=== PATIENT | male | born 1975 | race Caucasian/White ===

== ENCOUNTER 2025-10-19 17:30 | Observation (INO) | payer OTHER, SELFPAY ==
[2025-10-19] VITALS (7 sets, daily range): BP systolic 103–112; BP diastolic 72–75; PULSE 88–102; RESP 16–22; TEMP 36.4–36.7; O2SAT 94–100; BMI 23.3; BMI 21.8; BMI 22.7
--- NOTE | 2025-10-19 17:39 | CT_ITS ---
PROCEDURE: STROKE BRAIN/HEAD WITHOUT CONT 10/19/2025 REASON FOR EXAM: NEURO DEFICIT, ACUTE, STROKE SUSPECTED TECHNIQUE: Procedure Code: CTBR.ST Modality: CT Procedure: STROKE BRAIN/HEAD WITHOUT CONT Coronal and Sagittal reconstruction series were provided. One or more dose reduction techniques were used (e.g., Automated exposure control, adjustment of the mA and/or kV according to patient size, use of iterative reconstruction technique. RADIATION DOSE SUMMARY: CTDlvol: 44 mGy DLP: 463 mGycm FINDINGS: The ventricles are normal in size and midline in position. No evidence of acute hemorrhage or infarction. No extra-axial blood or fluid collections. The paranasal sinuses and mastoid air cells are clear. The calvarial vault and skull base are intact. CT/STROKE Brain/Head without Cont IMPRESSION: No acute intracranial abnormality. Critical results were communicated to Dr. Armenta at 4:50 p.m.. Reading [facility]
--- NOTE | 2025-10-19 17:39 | EKG12_ITS ---
Test Reason : stroke Blood Pressure : */* mmHG Vent. Rate : 88 BPM Atrial Rate : 88 BPM P-R Int : 238 ms QRS Dur : 96 ms QT Int : 352 ms P-R-T Axes : 35 -11 9 degrees QTcB Int : 425 ms Sinus rhythm with 1st degree A-V block Inferior infarct , age undetermined Abnormal ECG Confirmed by LETTY AGUIRRE, YAYA ([id number]), slot editor NIRAJ BARNETT ([id number]) on 10/24/2025 6:22:18 AM Referred By: Confirmed By: YAYA SAENZ MD
--- NOTE | 2025-10-19 17:40 | CT_ITS ---
PROCEDURE: STROKE CTA HEAD AND NECK W/CON 10/19/2025 REASON FOR EXAM: NEURO DEFICIT, ACUTE, STROKE SUSPECTED TECHNIQUE: Procedure Code: CTCTA.ST.HN Modality: CT Procedure: STROKE CTA HEAD AND NECK W/CON Multiplanar Sagittal and Coronal images were obtained. CONTRAST: Isovue 370 VOLUME: 104 mL One or more dose reduction techniques were used (e.g., Automated exposure control, adjustment of the mA and/or kV according to patient size, use of iterative reconstruction technique). RADIATION DOSE SUMMARY: CTDlvol: 24+ 18 mGy DLP: 801 mGycm FINDINGS: The common carotid arteries are patent. The internal carotid arteries are patent. The cervical vertebral arteries are patent. The right cervical vertebral artery is dominant when compared to the left, an anatomic variant. The anterior cerebral, anterior communicating, middle cerebral, and posterior cerebral arteries are patent. The superior cerebellar, anterior inferior cerebellar, and posterior inferior cerebellar arteries are patent. Bilateral pulmonary nodules with the largest located in left lung apex and measuring 14 mm. Suspicion for bilateral perihilar lymphadenopathy. CT/STROKE CTA Head AND Neck W/Con IMPRESSION: No acute arterial abnormality of the head or neck. Suspicious pulmonary nodules and perihilar lymphadenopathy. Further characteri zation with nonemergent chest CT is recommended. Reading Location: [facility]
--- NOTE | 2025-10-19 17:43 | EX.ED.VIS.EY ---
HPI History of Present Illness Chief Complaint: Stroke Alert Informant: patient Onset/Context/Timing Location: Left Eye Onset: Today Context: Sudden Onset Timing: Continuous Worsened by: Nothing Relieved by: Nothing Associated Symptoms Visual Changes: left: Visual field cut (Top right visual field) History of injury: No Narrative Narrative: Patient presents with visual field deficit that began today. Patient states he was watching TV around noon when this started. Patient states the top right portion of his visual field of his left eye became black. Patient states it has been constant. Patient states he would and saw his mining manager who noted that he had a vascular occlusion in his retina. Patient was then referred to the emergency department for stroke evaluation. Patient denies any weakness. Patient denies any nausea or vomiting. Patient denies any paresthesias. Patient denies any headaches. Patient denies any chest pain. [facility] Medical History (Updated 10/19/25 @ 20:[address] Nathanael Armenta, DO) Normocytic anemia Hypothyroidism PAF (paroxysmal atrial fibrillation) Valvular heart disease Squamous cell carcinoma of skin of left cheek Home Medications ?Medication ?Instructions ?Recorded ?Last Taken ?Type apixaban 5 mg tablet (Eliquis) 5 mg PO BID 10/19/25 Unknown History levothyroxine 200 mcg tablet 200 mcg PO DAILY 10/19/25 Unknown History Allergy/AdvReac Type Severity Reaction Status Date / Time No Known Allergies Allergy Verified 10/19/25 17:34 Surgical History (Updated 10/19/25 @ 19:[address] Belkys Castillo MD) S/P mitral valve repair History of facial surgery Social History Smoking Status: Former smoker ROS ROS ED Eyes Eyes: Reports change in vision Cardiovascular Cardiovascular: Denies chest pain Respiratory/Chest Respiratory/Chest: Denies cough or dyspnea Gastrointestinal Gastrointestinal: Denies nausea or vomiting Musculoskeletal Musculoskeletal: Denies back pain or neck pain Neurologic Neurologic: Denies headache(s) Allergic/Immunologic Allergic/Immunologic ED: Denies urticaria EXAM Physical Exam Const Vital Signs: 10/19/25 17:30 Temperature 97.6 F L Temperature Source Temporal Pulse Rate 102 H Respiratory Rate 16 Blood Pressure 106/75 Blood Pressure Mean 85 Pulse Ox 100 Oxygen Delivery Method Room Air Positive well nourished and well developed General Appearance ED: well developed and NAD HEENT atraumatic Eyes Eyes Narrative: Pupils are dilated. There is decreased vision in the superior medial portion of the left visual field. Extraocular muscles are intact. Neck supple and no JVD Resp normal respiratory effort and clear to auscultation bilaterally Cardio regular rate and regular rhythm GI non-tender and non-distended Palpation: soft Neuro oriented x3, CN's II-XII intact bilaterally, moves all extremities and no sensory deficits noted Sensorium / Orientation: alert Motor Exam: strength 5/5 throughout MDM MDM MDM Narrative Medical decision making narrative: Stroke alert was called. Stroke order set was used. CT scan of the brain will be obtained to assess for intracranial bleeding and stroke. CTA of the head and neck will be obtained to assess for large vessel occlusion and vascular stenosis. EKG will be obtained to assess for cardiac dysrhythmia and cardiac ischemia. Chest x-ray will be obtained to assess for pneumonia and bronchitis. CBC will be obtained to assess for leukocytosis and anemia. Basic metabolic profile will be obtained to assess for electrolyte abnormality renal function. High-sensitivity troponin will be obtained to assess for cardiac ischemia. 2-hour repeat high-sensitivity troponin will be obtained to assess for ongoing cardiac ischemia. PT with INR and PTT will be obtained to assess for coagulopathy. Lab Data Lab results narrative: CBC was reviewed. There is a mild leukocytosis of 15.0. There is a mild anemia with a hemoglobin of 9.1 and hematocrit of 28.2. Basic metabolic profile was reviewed. Glucose was slightly elevated at 121. The remainder is within normal limits. PT with INR and PTT were reviewed. Pro time was slightly elevated at 16.0 and INR is 1.3. PTT was slightly elevated at 40.3. Initial high-sensitivity troponin was reviewed and was slightly elevated at 23. Radiography Chest X-Ray - ED: 1 View, Read by ED Physician, Read by Radiologist and No Acute Disease CTA PE Study: No Evidence of PE and No Evidence of Dissection Diagnostic Testing: Portable 1 view chest x-ray was obtained. On my independent interpretation, lung luis are clear. There is normal cardiac silhouette. Bony thorax is normal. There is no acute process noted. Radiologist also interpreted the x-ray and agrees. CT scan of the brain was obtained. There is no acute intracranial abnormality. This was interpreted by the radiologist I also independently reviewed the images and did not see evidence of intracranial bleeding or stroke. CTA of the head and neck was obtained. There is no evidence of large vessel occlusion or vascular stenosis. This was interpreted by the radiologist. I also independently reviewed the images and did not see any large vessel occlusion. CTA of the chest was obtained. There is no evidence of pulmonary embolism or aortic dissection. There are multiple pulmonary nodules and lymphadenopathy suspicious for malignancy. This was interpreted by the radiologist. I also independently reviewed the images and did not see any evidence of pulmonary embolism or aortic dissection. EKG Initial EKG: Attestation: I personally reviewed and interpreted this EKG as follows: Interpretation: Sinus Rhythm (88), AV Block (First-degree) and Non-Specific ST Changes Comments: EKG was obtained. On my independent interpretation, it showed a normal sinus rhythm with first-degree AV block with a rate of 88. SD interval was prolonged at 238 ms. QRS interval was normal at 96 ms. QTc interval was normal at 425 ms. There is borderline left axis deviation at -11. There are nonspecific ST-T wave changes. Prior EKG tracings: not available for review Prior: No Prior Management Discussion w/another healthcare provider: Hospitalist, Button Sewer ([facility] stroke neurologist, Dr. Elliott) and Radiologist Treatment and Re-Evaluation Narrative: Patient was evaluated by stroke neurology at [facility]. They recommended transferring to [facility] for inpatient stroke and ophthalmology workup. Patient would prefer to stay here. Patient will be admitted here for further stroke workup. He will follow-up with ophthalmology as an outpatient. Discharge Plan Dx/Rx/DC Orders Clinical Impression: Branch retinal artery occlusion of left eye, Normocytic anemia, Squamous cell carcinoma of skin of left cheek Disposition Disposition: Acute Care Hospital [facility]
--- NOTE | 2025-10-19 17:52 | CT_ITS ---
PROCEDURE: CTA CHEST W/WO CONTRAST 10/19/2025 REASON FOR EXAM: SUSPECTED PE TECHNIQUE: Procedure Code: CTCTACHWW Modality: CT Procedure: CTA CHEST W/WO CONTRAST Multiplanar Sagittal and Coronal images were obtained. One or more dose reduction techniques were used (e.g., Automated exposure control, adjustment of the mA and/or kV according to patient size, use of iterative reconstruction technique). RADIATION DOSE SUMMARY: DLP: 1394. mGycm FINDINGS: The peripheral soft tissues are unremarkable. Tissues degenerative changes of the spine. Thyroid is unremarkable. The esophagus is normal in caliber. Indeterminate hypodense hepatic lesions with the largest measuring 17 mm. Of the characterization with liver protocol CT or MRI is recommended. No pulmonary artery filling defects. Enlarged mediastinal lymph nodes. For instance, a periaortic window lymph node measures 12 mm. Numerous bilateral pulmonary nodules of varying sizes suspicious for malignancy. The largest is a left upper lobe 2.8 cm nodule. Hilar soft tissue density likely representing enlarged lymph nodes. CT/CTA Chest W/WO Contrast IMPRESSION: Bilateral pulmonary nodules and lymphadenopathy suspicious for malignancy. No pulmonary embolism. Reading Location: [facility]
[2025-10-19 18:07] LABS: Hematocrit 28.2 % (40-54); Hemoglobin 9.1 g/dL (13.0-16.5); Immature Granulocytes Count 0.070 X10^3/uL (0.0-0.0); Mean Corp Hgb Conc 32.3 g/dL (32-36); Mean Corpuscular Volume 94.0 fL (80-94); Mean Platelet Vol. 9.1 fl (6.2-12.0); NRBC Flagged by Analyzer 0 % (0-5); Platelet Count 440 K/mm3 (150-450); RBC Distribution Width CV 11.9 % (11.6-14.6); RBC Distribution Width SD 41.1 fl (35.1-43.9); Red Blood Count 3.00 M/mm3 (4.6-6.2); White Blood Count 15.0 K/mm3 (4.4-11.0)
[2025-10-19 18:23] LABS: Anion Gap 12 (5-15); BUN 12 mg/dL (4-19); BUN/Creat Ratio 14.5 RATIO (10-20); Calcium,Total 10.8 mg/dL (7.6-11.0); Carbon Dioxide 27.4 mmol/L (21.0-32.0); Chloride 98 mmol/L (98-108); Estimated Creatinine Clearance 114.99 ml/min (50-250); Glucose 121 mg/dL (70-99); Potassium 4.5 mmol/L (3.3-5.1); Troponin T High Sensitivity 23 ng/L (<=22)
[2025-10-19 18:25] LABS: Prothrombin Time (Protime)PT. 16.0 SECONDS (11.7-14.9)
[2025-10-19 18:26] LABS: Partial Thromboplast Time 40.3 Seconds (24.1-36.2)
--- NOTE | 2025-10-19 18:40 | RAD_ITS ---
PROCEDURE: CHEST 1 VIEW 10/19/2025 REASON FOR EXAM: NEURO DEFICIT, ACUTE, STROKE SUSPECTED TECHNIQUE: Frontal view of the chest. COMPARISON: CT angio chest 10/19/2025 FINDINGS: Hardware: None. Heart: The heart size is normal. Lungs: No focal consolidation. Bilateral pulmonary arteries better characterized on CT angio chest. No pneumothorax or pleural effusion. Bones: The bones are unremarkable. RAD/Chest 1 View IMPRESSION: No Acute Findings. Reading Location: [facility]
--- NOTE | 2025-10-19 19:25 | PCM.HP.STD ---
HPI - General General Date of Admission: 10/19/25 Date of Service: 10/19/25 Chief Complaint: L eye vision loss/changes. HPI Narrative The patient is a 49 y/o M w/ PMHx: Valvular heart disease, Hypothyroiidsm, PAF, Squamous cell carcinoma left cheek s/p surgical resection/reconstruction with PEG tube for supplemental feedings who presents to the [facility] ED on 10/19/2025 with last known well at approximately noon on day of presentation arriving at 1730 with onset of left-sided vision loss with recent evaluation by the eye doctor prior to arrival who upon their evaluation noted that there was a branch artery occlusion with a Hollin horse plaque present recommending referral to the ED given acute left monocular vision loss. Stroke alert was initiated and neurologist noted last known normal at 8 however patient to the ED physician noted noon but reportedly after he had gotten up and use the restroom was started to go downstairs when he reportedly had the sudden changes in his vision where he felt like the left upper half of the vision was covered by cloud and when he covered his right eye he noted that the upper half of the left vision was completely gone but if he covered his left eye the right eye vision was completely normal prompting him to request emergent evaluation with the clip bolter and wrapper. In the ED NIH stroke assessment per neurologist 1 for partial hemianopia. Workup in the ED included T97.6, heart rate 102, BP 106/75, respiratory rate 16, 100% on room air with most recent repeat vitals heart rate 88, BP 112/72, respiratory rate 22, 100% room air, CBC with WC 15, Luna 9.1, MCV 94, platelet 440 with left shift and lymphopenia, coags with PT 16, PTT 40.3, INR 1.3, EMP with BUN/creatinine 12/0.82, GFR 109, glucose 121, initial troponin 23, CT of the brain with no acute intracranial findings, CTA head and neck with no acute arterial abnormality of the head or neck, suspicious pulmonary nodules and perihilar lymphadenopathy noted, follow-up chest CTA with bilateral pulmonary nodules and lymphadenopathy suspicious for malignancy with no evidence of any pulmonary emboli, EKG with SR with 1AVB with no acute evidence of ischemia. [facility] Medical History Normocytic anemia Hypothyroidism PAF (paroxysmal atrial fibrillation) Valvular heart disease Squamous cell carcinoma of skin of left cheek Home Medications ?Medication ?Instructions ?Recorded ?Last Taken ?Type apixaban 5 mg tablet (Eliquis) 5 mg PO BID 10/19/25 Unknown History levothyroxine 200 mcg tablet 200 mcg PO DAILY 10/19/25 Unknown History Allergy/AdvReac Type Severity Reaction Status Date / Time No Known Allergies Allergy Verified 10/19/25 17:34 Family History Mother Heart disease Valvular heart disease Father Hypertension Surgical History S/P percutaneous endoscopic gastrostomy (PEG) tube placement History of bilateral inguinal hernia repair S/P mitral valve repair History of facial surgery Social History household members: none Smoking Status: Never smoker how long ago did patient quit smoking: OF NOTE: Patient to staff reported hx smoking, MD re-ask denied. alcohol intake: never substance use type: does not use ROS ROS Narrative Admission Review of Systems: CONSTITUTIONAL: No weight loss, fever, chills, + weakness or fatigue. HEENT: + Left eye sudden vision changes. Eyes: No double vision or yellow sclerae. Ears, Nose, Throat: No hearing loss, sneezing, congestion, runny nose or sore throat. SKIN: No rash or itching, lesions, wounds except occasional stage ecchymoses, abrasion, status post left facial surgery/resection with reconstruction. CARDIOVASCULAR: No chest pain, chest pressure or chest discomfort, palpitations, edema, orthopnea, syncopal events. RESPIRATORY: No shortness of breath, cough or sputum, wheezing, hemoptysis. GASTROINTESTINAL: + Difficulty swallowing thin liquids secondary to facial reconstruction. No anorexia, nausea, vomiting or diarrhea, abdominal pain, melena, BRBPR. GENITOURINARY: No dysuria, frequency, urgency or retention. NEUROLOGICAL: No headache, dizziness, syncope, paralysis, ataxia, numbness or tingling in the extremities, focal weakness, change in bowel or bladder control, seizure. MUSCULOSKELETAL: + muscle, back pain, joint pain or stiffness. HEMATOLOGIC: + Evidence of anemia, unclear chronic, easy bleeding/bruising given chronic anticoagulation. LYMPHATICS: No enlarged nodes. No history of splenectomy. PSYCHIATRIC: No history of depression or anxiety. ENDOCRINOLOGIC: No reports of sweating, cold or heat intolerance. No polyuria or polydipsia. ALLERGIES: No history of asthma, hives, eczema or rhinitis. Vital Signs Vital Signs Vital Signs: 10/19/25 17:30 10/19/25 17:53 10/19/25 18:02 Temperature 97.6 F L Temperature Source Temporal Pulse Rate 102 H 89 Respiratory Rate 16 18 Blood Pressure 106/75 111/75 Blood Pressure Mean 85 87 Pulse Ox 100 100 Oxygen Delivery Method Room Air Room Air 10/19/25 18:23 10/19/25 18:30 10/19/25 19:00 Temperature 98.1 F Temperature Source Oral Pulse Rate 88 88 89 Respiratory Rate 19 H 22 H 16 Blood Pressure 112/72 112/72 103/73 Blood Pressure Mean 85 85 83 Pulse Ox 100 100 100 Oxygen Delivery Method Room Air Room Air Room Air Weight Weight: 160 lb 14.999 oz Body Mass Index (BMI) 21.8 Physical Exam Narrative Physical Examination: General: Awake, alert, oriented x 3 and cooperative, seated upright in the ED bed, no acute distress, still persistent vision deficit but otherwise no new neurological findings. Skin: Normal color, normal turgor, no icterus, no cyanosis except occasional stage ecchymoses, abrasion, status post previous left facial resection skin cancer/reconstructive surgery. HEENT: AT aside from see skin/NC, EOMI, PERRLA, dry MM, no carotid bruits or JVD noted, only noted left inner upper quadrant vision deficit. Lungs: CTA bilaterally, moderate effort, mild decrease BL bases, no rales, ronchi or wheezing. Heart: Regular rate and rhythm; no gallop, rub audible. Abdomen: Soft, NTTP, ND, mildly hyperactive BS, G-tube in place, no appreciated HSM. Extremities: No cyanosis, clubbing, or edema. Neurological: Patient awake, alert, oriented as noted, cognitive function intact; pupils equally reactive to light and accommodation, cranial nerves grossly normal, moving all 4 extremities, no focal deficits, strength preserved, sensation intact, finger-nose and [id number] appropriate, equivocal Babinski, only noted left inner upper quadrant vision deficit. Psychiatric: Affect appears flat, no acute evidence of depressive or anxiety feelings. Results Lab / Micro Data 10/19/25 17:55 10/19/25 17:55 Labs: Laboratory Results - last 24 hr 10/19/25 17:55: WBC 15.0 H, RBC 3.00 L, Hgb 9.1 L, Hct 28.2 L, MCV 94.0, MCH 30.3, MCHC 32.3, RDW Std Deviation 41.1, RDW Coeff of Eugenia 11.9, Plt Count 440, MPV 9.1, Immature Gran % (Auto) 0.500, Neut % (Auto) 87.6 H, Lymph % (Auto) 4.7 L, [place] % (Auto) 5.7, Eos % (Auto) 1.3, Baso % (Auto) 0.2, Absolute Neuts (auto) 13.2 H, Absolute Lymphs (auto) 0.71 L, Nucleated RBC % 0, PT 16.0 H, INR 1.3, APTT 40.3 H, Sodium 138, Potassium 4.5, Chloride 98, Carbon Dioxide 27.4, Anion Gap 12, BUN 12, Creatinine 0.82, Estim Creat Clear Calc 114.99, Est GFR (MDRD) Non-Af 109, BUN/Creatinine Ratio 14.5, Glucose 121 H, Calcium 10.8, Troponin T High Sens 23 H 10/19/25 18:00: POC Glucose 105 Imaging Radiology Impression Brain CT 10/19/25 17:39 IMPRESSION: No acute intracranial abnormality. Critical results were communicated to Dr. Armenta at 4:50 p.m.. Reading Location: [facility] Head/Neck CTA 10/19/25 17:40 IMPRESSION: No acute arterial abnormality of the head or neck. Suspicious pulmonary nodules and perihilar lymphadenopathy. Further characterization with nonemergent chest CT is recommended. Reading Location: [facility] Chest CTA 10/19/25 17:52 IMPRESSION: Bilateral pulmonary nodules and lymphadenopathy suspicious for malignancy. No pulmonary embolism. Reading Location: [facility] Chest X-Ray 10/19/25 18:40 IMPRESSION: No Acute Findings. Reading Location: [facility] Assessment & Plan Assessment/Plan (1) CVA (cerebral vascular accident): PLAN: Plan The patient is a 49 y/o M w/ PMHx: Valvular heart disease, Hypothyroidsm, PAF, Squamous cell carcinoma left cheek s/p surgical resection/reconstruction with PEG tube for supplemental feedings who presents to the [facility] ED on 10/19/2025 with last known well at approximately noon on day of presentation arriving at 1730 with onset of left-sided vision loss with recent evaluation by the eye doctor prior to arrival who upon their evaluation noted that there was a branch artery occlusion with a Hollin horse plaque present recommending referral to the ED given acute left monocular vision loss. #1. Left monocular superior quadrantanopia concerning for acute CVA: Will admit to PCU, will obtain MRI Brain, will obtain ECHO, PT/OT/Speech/Nutrition evaluation per protocol. Will allow permissive HTN, maintain on asa, continue Eliquis regimen pending neurology evaluation as given his history and possible metastatic disease may be more appropriate for Lovenox versus Coumadin, add statin w/ AM FLP, fall precautions. Mag, TSH, FLP, HgbA1c requested. Maintain on fall and aspiration precautions. Continue neurology consultation. #2. Indeterminate cardiac enzyme of unclear significance: Troponin upon evaluation 23, CTA with suspicious findings with pulmonary nodules and perihilar lymphadenopathy concerning for possible malignancy but no acute concerning findings otherwise or evidence of PE, EKG with SR with 1AVB with no acute evidence of ischemia, will maintain on telemetry, continue Eliquis, adding statin as noted above, FLP in AM, magnesium level requested, echocardiogram requested. #3. Incidentally noted pulmonary nodules and perihilar lymphadenopathy: Patient with noted findings on CTA head and neck with follow-up chest CTA with noted bilateral pulmonary nodules and lymphadenopathy suspicious for malignancy, will need follow-up and further evaluation outpatient especially given chronic anticoagulation with preference to avoid any hold at this time given #1 presentation as noted above. #4. Normocytic anemia, unclear chronicity, given history suspect chronic: Admission hemoglobin 9.1, MCV 94, no comparison labs, will plan repeat CBC in a.m. and if stable likely suspect this is chronic however if this is worsened would obtain iron panel, ferritin, guaiac and further evaluate. #5. PAF: Not on any rate or rhythm agent, will continue apixaban regimen unless preference for transition as noted to potentially Lovenox versus Coumadin given underlying cancer history with metastatic disease potential in the setting of stroke on NOAC, will await neurology input. #6. Hypothyroidism: Will continue patient on levothyroxine regimen, TSH requested. #7. Valvular heart disease: Reported mitral valve repair previously, no echocardiogram the system, requested given presentation as noted above. #8. Squamous cell carcinoma left cheek s/p surgical resection/reconstruction with PEG tube for supplemental feedings #9. Severe protein calorie nutrition: Patient with poor intake, requiring supplemental tube feeds with PEG tube in place, will clarify tube feeds and continue, nutrition will be consulted, mag and Phos will be assessed as well. #10. DVT prophylaxis: Continue patient on Eliquis regimen; however, given underlying cancer history and this presentation with stroke in the setting may need to consider Lovenox versus Coumadin but will wait for neurology input. #11. CODE status: Patient does not have healthcare power of catia designer or living will in place but he notes his sister was present would be his preference for medical decisions if he was unable. Discussed CODE status at length including difference between FULL code, DNR-CCA and DNR-CC status. Following discussions about the differences in these status, requested Full Code status. Advanced Care Planning Face to Face Time: 16 minutes. Charges/Coding Visit Charges Inpatient E&M: 33081 Init Hosp L3 Procedures Hospitalists Procedures: 14143 Advncd Care Plan 30 Min
--- NOTE | 2025-10-19 19:30 | CM.ED ---
Social Work Reason for visit: Stroke Alert SW met with patients sister while patient was in imaging. Sister told SW all of patients recent medical concerns, treatments, and hospitalizations. Emotional support provided. Jelly Hamitlon, FIELD CONTROL INSPECTOR, PAYROLL REPRESENTATIVE
[2025-10-19 20:26] LABS: Troponin T High Sens 2 HR 23 ng/L (<=22)
--- NOTE | 2025-10-19 21:08 | ECHOD_ITS ---
Reason For Study Reason For Study: CVA Procedure This was a 2D Doppler, Color Flow transthoracic echocardiogram. The study was technically difficult. Low parasternal acoustic window. Exam performed portable in patient room. Left Ventricle Normal LV size. The estimated ejection fraction is 65 %. Unable to assess diastolic dysfunction. No regional wall motion abnormalities noted. Right Ventricle Normal RV size. Normal systolic function. Atria The left and right atria are normal. Bubble contrast study is positive for PFO. Mitral Valve Status post mitral valve repair. Tricuspid Valve There is no tricuspid stenosis. Trivial tricuspid valve insufficiency. Pulmonary artery systolic pressure is 25 mmHg. Aortic Valve Trisinus/trileaflet aortic valve. Mild diffuse aortic valve thickening. There is no aortic stenosis. No aortic valve insufficiency. Pulmonic Valve There is no pulmonic valvular stenosis. No pulmonic valve insufficiency. Great Vessels Normal sized aortic root. Pericardium/Pleural No pericardial effusion. MMode/2D Measurements & Calculations LVIDd: 4.2 cm IVSd: 0.67 cm LAV(MOD- bp): 47.5 ml LVIDs: 2.7 cm LVPWd: 0.90 cm LAV(MOD- bp) Indexed: 24.2 ml/m2 RVDd: 4.0 cm FS: 36.1 % LAV(MOD- sp2): 43.1 ml LAV(MOD- sp4): 45.7 ml LVAd ap4: 32.0 cm2 LVAd ap2: 35.0 cm2 EDV(MOD- bp): 93.9 ml LVLd ap4: 9.7 cm LVLd ap2: 10.2 cm ESV(MOD- bp): 37.9 ml EDV(MOD-sp4): 87.1 ml EDV(MOD-sp2): 96.6 ml EF(MOD- bp): 59.7 % EDV(sp4-el): 89.6 ml EDV(sp2-el): 101.7 ml LVAs ap4: 19.1 cm2 LVAs ap2: 19.2 cm2 LVLs ap4: 8.5 cm LVLs ap2: 9.2 cm ESV(MOD-sp4): 37.4 ml ESV(MOD-sp2): 35.0 ml ESV(sp4-el): 36.6 ml ESV(sp2-el): 34.3 ml EF(MOD-sp4): 57.1 % EF(MOD-sp2): 63.8 % EF(sp4-el): 59.2 % SV(MOD-sp4): 49.7 ml SV(MOD-sp2): 61.6 ml SV(sp4- el): 53.1 ml SI(MOD-sp4): 25.3 ml/m2 SI(MOD-sp2): 31.4 ml/m2 LA dimension(2D): 3.4 cm LA A4 area: 16.9 cm2 RA A4 area: 20.4 cm2 TAPSE: 1.9 cm Time Measurements MV dec time: 0.22 sec Doppler Measurements & Calculations MV E max chidi: 111.2 cm/sec Lat Peak E' Chidi: 14.5 cm/sec Med Peak E' Chidi: 5.9 cm/sec MV A max chidi: 123.8 cm/sec E/E' lat: 7.7 E/E' med: 18.7 MV E/A: 0.90 MV V2 max: 131.8 cm/sec MV dec slope: 521.3 cm/sec2 Ao V2 max: 115.0 cm/sec MV max P.0 mmHg Ao max P.3 mmHg MV V2 mean: 91.4 cm/sec Ao V2 mean: 75.8 cm/sec MV mean P.7 mmHg Ao mean P.6 mmHg MV V2 VTI: 29.8 cm Ao V2 VTI: 19.3 cm AV (velocity ratio): 0.88 LV V1 max: 78.6 cm/sec PA V2 max: 88.7 cm/sec TR max chidi: 217.5 cm/sec LV V1 max P.5 mmHg TR max P.9 mmHg LV V1 mean P.6 mmHg LV V1 mean: 61.2 cm/sec LV V1 VTI: 16.9 cm ECHO/Echo Complete Interpretation Summary The estimated ejection fraction is 65 %. Unable to assess diastolic dysfunction. Bubble contrast study is positive for PFO. Status post mitral valve repair. Ordering Physician: Belkys Castillo Referring Physician: Last Coleman Performed By: Kwadwo Noriega RDCS
[2025-10-19 21:17] LABS: Magnesium 2.2 mg/dL (1.5-2.2)
[2025-10-19] MEDS: APIXABAN 5 MG TABLET PO (22:45)
[2025-10-19] MEDS: 0.9% Normal Saline (1000mL) 1,000 ML 100 ML IV (22:47)
[2025-10-19 23:15] LABS: Troponin T High Sens 4 HR 23 ng/L (<=22)
[2025-10-20 02:00] VITALS: BP 97/68; PULSE 83; RESP 18; TEMP 36.1; O2SAT 97
[2025-10-20 04:35] LABS: Hematocrit 25.2 % (40-54); Hemoglobin 8.4 g/dL (13.0-16.5); Immature Granulocytes Count 0.030 X10^3/uL (0.0-0.0); Mean Corp Hgb Conc 33.3 g/dL (32-36); Mean Corpuscular Volume 94.4 fL (80-94); Mean Platelet Vol. 8.8 fl (6.2-12.0); NRBC Flagged by Analyzer 0 % (0-5); POSITIVE DIFFERENTIAL YES; Platelet Count 371 K/mm3 (150-450); RBC Distribution Width CV 12.0 % (11.6-14.6); RBC Distribution Width SD 41.5 fl (35.1-43.9); Red Blood Count 2.67 M/mm3 (4.6-6.2); White Blood Count 10.9 K/mm3 (4.4-11.0)
[2025-10-20 05:06] LABS: Albumin, Serum 3.7 g/dL (3.5-5.0); BUN 9 mg/dL (4-19); BUN/Creat Ratio 11.1 RATIO (10-20); Estimated Creatinine Clearance 127.66 ml/min (50-250); Glucose 89 mg/dL (70-99)
[2025-10-20 05:07] LABS: AST(SGOT) 12 U/L (<=37); Alanine Aminotransfer ALT/SGPT 6 U/L (<=46); Alkaline Phosphatase 60 U/L (40-129); Anion Gap 10 (5-15); Calcium,Total 10.5 mg/dL (7.6-11.0); Carbon Dioxide 26.6 mmol/L (21.0-32.0); Chloride 99 mmol/L (98-108); Cholesterol 160 mg/dL (<=200); Globulin 3.8 g/dL (2.2-4.2); Low Density Lipoprotein Calc. 109 mg/dL; Potassium 3.8 mmol/L (3.3-5.1); Triglycerides 57 mg/dL; Very Low Density Lipoprotein 11 mg/dL (5-40); cholesterol:hdl ratio screen 4.01
[2025-10-20 05:12] VITALS: BMI 22.4
[2025-10-20 06:00] VITALS: BP 104/78; PULSE 89; RESP 18; TEMP 36.5; O2SAT 98
--- NOTE | 2025-10-20 07:00 | MRI_ITS ---
EXAM: BRAIN WITHOUT CONTRAST CLINICAL HISTORY: CVA 49 old male with visual field defect. COMPARISON: CT brain dated 10/19/2025 TECHNIQUE: Multiplanar, multisequence MR images of the brain were obtained without gadolinium contrast material. FINDINGS: No intracranial hemorrhage, mass, mass effect, midline shift or pathologic extra- axial fluid collection. No hydrocephalus. Preservation of the [place]- white parenchymal differentiation. Single focal area of T2 signal hyperintensity within the left frontal lobe, nonspecific. Focal area of increased T2 signal in the periventricular white matter in the left frontal lobe. Additional small foci of T2 signal hyperintensity in the frontal lobes bilaterally. No abnormal signal within either of the optic nerves No areas of restricted diffusion to suggest acute ischemia or infarction. Focal area of susceptibility in the left sylvian fissure . No cerebellar tonsillar ectopia. No sellar/suprasellar signal abnormalities. The ocular globes and intraorbital soft tissues are symmetrically unremarkable. Paranasal sinuses are essentially clear. Deviation of the nasal septum to the right. MRI/Brain without Contrast IMPRESSION: No acute intracranial abnormality. T2 signal hyperintensities on FLAIR most pronounced within the periventricular white matter of the left frontal lobe. The findings are nonspecific. Differential considerations would include dysmyelina ting and demyelinating disorders inclusive of multiple sclerosis. No areas of restricted diffusion to suggest acute hemorrhage. Subtle area of susceptibility within the left sylvian fissure likely related to old microhemorrhage. Reading Location: [facility]
--- NOTE | 2025-10-20 08:27 | PCM.PN.HOSP ---
Reason for Visit Chief Complaint: L eye vision loss/changes. Subjective Subjective Still with visual field deficit in left eye in RUQ Objective Data Objective Data Vital Signs: Vital Signs Temp Pulse Resp BP Pulse Ox O2 Del Method 36.5 C L 89 18 104/78 98 Room Air 10/20/25 06:00 10/20/25 06:00 10/20/25 06:00 10/20/25 06:00 10/20/25 06:00 10/20/25 07:15 Oxygen Delivery Method Room Air Weight: 75.1 kg Body Mass Index (BMI) 22.4 Lab / Micro Data 10/20/25 04:04 10/20/25 04:04 Labs: Laboratory Results - last 24 hr 10/19/25 17:55: WBC 15.0 H, RBC 3.00 L, Hgb 9.1 L, Hct 28.2 L, MCV 94.0, MCH 30.3, MCHC 32.3, RDW Std Deviation 41.1, RDW Coeff of [place]enia 11.9, Plt Count 440, MPV 9.1, Immature Gran % (Auto) 0.500, Neut % (Auto) 87.6 H, Lymph % (Auto) 4.7 L, [place] % (Auto) 5.7, Eos % (Auto) 1.3, Baso % (Auto) 0.2, Absolute Neuts (auto) 13.2 H, Absolute Lymphs (auto) 0.71 L, Nucleated RBC % 0, PT 16.0 H, INR 1.3, APTT 40.3 H, Sodium 138, Potassium 4.5, Chloride 98, Carbon Dioxide 27.4, Anion Gap 12, BUN 12, Creatinine 0.82, Estim Creat Clear Calc 114.99, Est GFR (MDRD) Non-Af 109, BUN/Creatinine Ratio 14.5, Glucose 121 H, Calcium 10.8, Troponin T High Sens 23 H 10/19/25 18:00: POC Glucose 105 10/19/25 19:38: Phosphorus 3.3, Magnesium 2.2, Troponin T Hi Sens 2 Hr 23 H 10/19/25 22:35: Troponin T Hi Sens 4Hr 23 H 10/20/25 04:04: WBC 10.9, RBC 2.67 L, Hgb 8.4 L, Hct 25.2 L, MCV 94.4 H, MCH 31.5, MCHC 33.3, RDW Std Deviation 41.5, RDW Coeff of Eugenia 12.0, Plt Count 371, MPV 8.8, Immature Gran % (Auto) 0.300, Neut % (Auto) 87.7 H, Lymph % (Auto) 4.8 L, [place] % (Auto) 5.3, Eos % (Auto) 1.6, Baso % (Auto) 0.3, Absolute Neuts (auto) 9.6 H, Absolute Lymphs (auto) 0.52 L, Nucleated RBC % 0, Sodium 136, Potassium 3.8, Chloride 99, Carbon Dioxide 26.6, Anion Gap 10, BUN 9, Creatinine 0.77, Estim Creat Clear Calc 127.66, Est GFR (MDRD) Non-Af 111, BUN/Creatinine Ratio 11.1, Glucose 89, Hemoglobin A1c 5.0, Calcium 10.5, Total Bilirubin 0.39, AST 12, ALT 6, Alkaline Phosphatase 60, Total Protein 7.5, Albumin 3.7, Globulin 3.8, Albumin/Globulin Ratio 1.0, Triglycerides 57, Cholesterol 160, LDL Cholesterol, Calc 109, VLDL Cholesterol 11, HDL Cholesterol 40, Cholesterol/HDL Ratio 4.01, TSH 1.170 Radiography Diagnostic Testing: Radiology Impression Brain CT 10/19/25 17:39 IMPRESSION: No acute intracranial abnormality. Critical results were communicated to Dr. Armenta at 4:50 p.m.. Reading Location: [facility] Head/Neck CTA 10/19/25 17:40 IMPRESSION: No acute arterial abnormality of the head or neck. Suspicious pulmonary nodules and perihilar lymphadenopathy. Further characterization with nonemergent chest CT is recommended. Reading Location: [facility] Chest CTA 10/19/25 17:52 IMPRESSION: Bilateral pulmonary nodules and lymphadenopathy suspicious for malignancy. No pulmonary embolism. Reading Location: [facility] Chest X-Ray 10/19/25 18:40 IMPRESSION: No Acute Findings. Reading Location: [facility] Physical Exam Const alert and no apparent distress HEENT HEENT Narrative: graft left cheek. Resp normal respiratory effort and no retractions Assessment & Plan Assessment/Plan (1) CVA (cerebral vascular accident): PLAN: Plan Left monocular superior quadrantanopia concerning for acute CVA MRI of the brain T2 flair most pronounced in the periventricular white matter of the left frontal lobe. Nonspecific findings. Neurology saw felt likely mechanism is cardioembolic from A-fib. Continue with apixaban, aspirin and statin. Follow-up with neurology and ophthalmology as outpatient. maintain on asa, continue Eliquis regimen pending neurology evaluation Continue neurology consultation. Elevated troponins: 23 x 3. Echo ordered. If no significant abnormality, no additional work up. Echo completed. Report pending. Incidentally noted pulmonary nodules and perihilar lymphadenopathy: Patient with noted findings on CTA head and neck with follow-up chest CTA with noted bilateral pulmonary nodules and lymphadenopathy suspicious for malignancy, will need follow-up and further evaluation outpatient Chronic conditions: Normocytic anemia, unclear chronicity, given history suspect chronic: Admission hemoglobin 9.1, MCV 94, no comparison labs, will plan repeat CBC in a.m. and if stable likely suspect this is chronic however if this is worsened would obtain iron panel, ferritin, guaiac and further evaluate. 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 DVT prophylaxis: Continue patient on Eliquis regimen; Charges/Coding Visit Charges Inpatient E&M: 21024 Subs Hosp L2 NIHSS NIHSS Nursing Documentation NIHSS Nursing Documentation: NIHSS: Ischemic Stroke/TIA Start: 10/19/25 21:08 Text: For PCU Patients: NIH and Neuro Check every 4 Status: Active hours, PRN and with change in RN caregiver. Freq: [id number] Protocol: Activity Type Activity Date Activity User E-sign Co-sign Detail Recorded Client Recorded Date Recorded By Document 10/20/25 07:15 DS [id number] 10/20/25 07:53 DS 10/20/25 07:15 NIH Stroke Scale [NIHSS] A score of 0 is normal or asymptomatic . Total possible score is 42. Inpatient: RN or Physician to activate a stroke alert for onset of new stroke symptoms or with NIHSS increase >/= 3 points. Following change in neurological status, NIHSS will be performed per physician order or more frequently PRN. -1a. Level of Consciousness 0 - Alert; keenly responsive -1b. LOC Questions 0 - Answers BOTH questions correctly -1c. LOC Commands 0 - Performs BOTH tasks correctly -2. Best Gaze 0 - Normal -3. Visual 1 - Partial hemianopia -4. Facial Palsy 0 - Normal symmetrical movements -5a. Left Arm 0 - No drift; arm holds 90 ( or 45) degrees for full 10 seconds -5b. Right Arm 0 - No drift; arm holds 90 ( or 45) degrees for full 10 seconds -6a. Left Leg 0 - No drift; leg holds 30- degree position for full 5 seconds -6b. Right Leg 0 - No drift; leg holds 30- degree position for full 5 seconds -7. Limb Ataxia 0 - Absent -8. Sensory 0 - Normal; no sensory loss -9. Best Language 0 - No aphasia; normal -10. Dysarthria 0 - Normal -11. Extinction and Inattention 0 - No abnormality -Total 1 Query Text:A score of 0 is normal or asymptomatic. Total possible score is 42 . ED: Notify Physician for NIHSS increase by > / = 3 points. Inpatient: RN or Physician to activate a stroke alert for NIHSS increase of > / = 3 points. Coma Scale [Assess] -Eye Opening Spontaneous -Motor Obeys Commands -Verbal Oriented [Total] -Coma Scale Total 15
[2025-10-20 09:56] VITALS: BP 97/71; PULSE 90; RESP 14; TEMP 36.6; O2SAT 100
[2025-10-20] MEDS: APIXABAN 5 MG TABLET PO (10:15)
--- NOTE | 2025-10-20 10:39 | CASEMGMT ---
Social Work Per imaging pt negative for stroke, therefore PHQ9 not completed. ELIZABETH Estrada
--- NOTE | 2025-10-20 12:50 | PN.NEURO_ITS ---
Objective Data Objective Data Vital Signs: Vital Signs Temp Pulse Resp BP Pulse Ox O2 Del Method 97.8 F 90 14 97/71 100 Room Air 10/20/25 09:56 10/20/25 09:56 10/20/25 09:56 10/20/25 09:56 10/20/25 09:56 10/20/25 09:56 Oxygen Delivery Method Room Air Weight: 75.1 kg Body Mass Index (BMI) 22.4 Intake & Output: Intake and Output for Last 24 Hours 10/18/25 10/19/25 10/20/25 23:59 23:59 23:59 Intake Total 1000 / 1000 Balance 1000 / 1000 Lab / Micro Data 10/20/25 04:04 10/20/25 04:04 Labs: Laboratory Results - last 24 hr 10/19/25 17:55: WBC 15.0 H, RBC 3.00 L, Hgb 9.1 L, Hct 28.2 L, MCV 94.0, MCH 30.3, MCHC 32.3, RDW Std Deviation 41.1, RDW Coeff of Eugenia 11.9, Plt Count 440, MPV 9.1, Immature Gran % (Auto) 0.500, Neut % (Auto) 87.6 H, Lymph % (Auto) 4.7 L, [place] % (Auto) 5.7, Eos % (Auto) 1.3, Baso % (Auto) 0.2, Absolute Neuts (auto) 13.2 H, Absolute Lymphs (auto) 0.71 L, Nucleated RBC % 0, PT 16.0 H, INR 1.3, A PTT 40.3 H, Sodium 138, Potassium 4.5, Chloride 98, Carbon Dioxide 27.4, Anion Gap 12, BUN 12, Creatinine 0.82, Estim Creat Clear Calc 114.99, Est GFR (MDRD) Non-Af 109, BUN/Creatinine Ratio 14.5, Glucose 121 H, Calcium 10.8, Troponin T High Sens 23 H 10/19/25 18:00: POC Glucose 105 10/19/25 19:38: Phosphorus 3.3, Magnesium 2.2, Troponin T Hi Sens 2 Hr 23 H 10/19/25 22:35: Troponin T Hi Sens 4Hr 23 H 10/20/25 04:04: WBC 10.9, RBC 2.67 L, Hgb 8.4 L, Hct 25.2 L, MCV 94.4 H, MCH 31.5, MCHC 33.3, RDW Std Deviation 41.5, RDW Coeff of Eugenia 12.0, Plt Count 371, MPV 8.8, Immature Gran % (Auto) 0.300, Neut % (Auto) 87.7 H, Lymph % (Auto) 4.8 L, [place] % (Auto) 5.3, Eos % (Auto) 1.6, Baso % (Auto) 0.3, Absolute Neuts (auto) 9.6 H, Absolute Lymphs (auto) 0.52 L, Nucleated RBC % 0, Sodium 136, Potassium 3.8, Chloride 99, Carbon Dioxide 26.6, Anion Gap 10, BUN 9, Creatinine 0.77, Estim Creat Clear Calc 127.66, Est GFR (MDRD) Non-Af 111, BUN/Creatinine Ratio 11.1, Glucose 89, Hemoglobin A1c 5.0, Calcium 10.5, Total Bilirubin 0.39, AST 12, ALT 6, Alkaline Phosphatase 60, Total Protein 7.5, Albumin 3.7, Globulin 3.8, Albumin/Globulin Ratio 1.0, Triglycerides 57, Cholesterol 160, LDL Cholesterol, Calc 109, VLDL Cholesterol 11, HDL Cholesterol 40, Cholesterol/HDL Ratio 4.01, TSH 1.170 Radiography Diagnostic Testing: Radiology Impression Brain CT 10/19/25 17:39 IMPRESSION: No acute intracranial abnormality. Critical results were communicated to Dr. Armenta at 4:50 p.m.. Reading Location: [facility] Head/Neck CTA 10/19/25 17:40 IMPRESSION: No acute arterial abnormality of the head or neck. Suspicious pulmonary nodules and perihilar lymphadenopathy. Further characterization with nonemergent chest CT is recommended. Reading Location: [facility] Chest CTA 10/19/25 17:52 IMPRESSION: Bilateral pulmonary nodules and lymphadenopathy suspicious for malignancy. No pulmonary embolism. Reading Location: [facility] Chest X-Ray 10/19/25 18:40 IMPRESSION: No Acute Findings. Reading Location: [facility] Brain MRI 10/20/25 07:00 IMPRESSION: No acute intracranial abnormality. T2 signal hyperintensities on FLAIR most pronounced within the periventricular white matter of the left frontal lobe. The findings are nonspecific. Differential considerations would include dysmyelinating and demyelinating disorders inclusive of multiple sclerosis. No areas of restricted diffusion to suggest acute hemorrhage. Subtle area of susceptibility within the left sylvian fissure likely related to old microhemorrhage. Reading Location: [facility] Physical Exam Neuro Neuro Narrative: Neurological examination: General: The patient appears nutritionally appropriate, well-groomed, and appears comfortable in no acute distress. Mental Status: The patient?s mental status was normal including orientation. Language was intact. Cranial nerves: Visual luis full, and extra-ocular motion was intact. Decreased vision in left eye (upper field). Face motion symmetric. There was no dysarthria. Motor: Normal strength and tone in all four extremities. No pronator drift. Sensation: Intact light touch bilaterally, no extinction. Coordination: Bilateral finger to nose was normal. There was no dysmetria. Gait: deferred Subject: Neurology Subjective Left eye vision is improved. He has loss of vision in the upper of left eye. No other new complaints. Assessment and Plan: Stroke Assessment/Plan WALESKA REECE is a 49 RH M ex-smoker with a history of Afib on eliquis (no missed dose), SCC Left cheek resection/reconstruction s/p PEG, and Hypothyroidism who on 10/19/25 at 8am after watching TV was walking out of living room amd developed sudden onset left eye vision loss (like it was covered by a cloud He went to ophtho clinic and eye exam showed left eye BRAO and he was sent to [place]. In ER, telestroke showed NIHSS-1. CT brain negative. CTA head/neck negative. MRI brain DWI negative. Patient continued on eliquis and started on Asa/lipitor 80. Neurological examination shows decreased vision in left eye. NIHSS-0 ASSESSMENT/PLAN: Left eye BRAO 1) Inpatient stroke work-up completed. Stroke mechanism is likely cardioembolism (Afib) 2) Agree with eliquis, Asa, Lipitor 3) Recommend outpatient neurology and optho clinic follow-up. Primary team messaged recs on backline Shaila Miller MD NIHSS NIHSS Nursing Documentation NIHSS Nursing Documentation: NIHSS: Ischemic Stroke/TIA Start: 10/19/25 21:08 Text: For PCU Patients: NIH and Neuro Check every 4 Status: Active hours, PRN and with change in RN caregiver. Freq: [id number] Protocol: Activity Type Activity Date Activity User E-sign Co-sign Detail Recorded Client Recorded Date Recorded By Document 10/20/25 09:56 DS [id number] 10/20/25 09:57 DS 10/20/25 09:56 NIH Stroke Scale [NIHSS] A score of 0 is normal or asymptomatic . Total possible score is 42. Inpatient: RN or Physician to activate a stroke alert for onset of new stroke symptoms or with NIHSS increase >/= 3 points. Following change in neurological status, NIHSS will be performed per physician order or more frequently PRN. -1a. Level of Consciousness 0 - Alert; keenly responsive -1b. LOC Questions 0 - Answers BOTH questions correctly -1c. LOC Commands 0 - Performs BOTH tasks correctly -2. Best Gaze 0 - Normal -3. Visual 1 - Partial hemianopia -4. Facial Palsy 0 - Normal symmetrical movements -5a. Left Arm 0 - No drift; arm holds 90 ( or 45) degrees for full 10 seconds -5b. Right Arm 0 - No drift; arm holds 90 ( or 45) degrees for full 10 seconds -6a. Left Leg 0 - No drift; leg holds 30- degree position for full 5 seconds -6b. Right Leg 0 - No drift; leg holds 30- degree position for full 5 seconds -7. Limb Ataxia 0 - Absent -8. Sensory 0 - Normal; no sensory loss -9. Best Language 0 - No aphasia; normal -10. Dysarthria 0 - Normal -11. Extinction and Inattention 0 - No abnormality -Total 1 Query Text:A score of 0 is normal or asymptomatic. Total possible score is 42 . ED: Notify Physician for NIHSS increase by > / = 3 points. Inpatient: RN or Physician to activate a stroke alert for NIHSS increase of > / = 3 points. Coma Scale [Assess] -Eye Opening Spontaneous -Motor Obeys Commands -Verbal Oriented [Total] -Coma Scale Total 15 NIHSS 1a. Level of Consciousness: 0 - Alert; keenly responsive 1b. LOC Questions: 0 - Answers BOTH questions correctly 1c. LOC Commands: 0 - Performs BOTH tasks correctly 2. Best Gaze: 0 - Normal 3. Visual: 0 - No visual loss 4. Facial Palsy: 0 - Normal symmetrical movements 5a. Left Arm: 0 - No drift; arm holds 90 (or 45) degrees for full 10 seconds 5b. Right Arm: 0 - No drift; arm holds 90 (or 45) degrees for full 10 seconds 6a. Left Le - No drift; leg holds 30-degree position for full 5 seconds 6b. Right Le - No drift; leg holds 30-degree position for full 5 seconds 7. Limb Ataxia: 0 - Absent 8. Sensory: 0 - Normal; no sensory loss 9. Best Language: 0 - No aphasia; normal 10. Dysarthria: 0 - Normal 11. Extinction and Inattention: 0 - No abnormality Total: 0
--- NOTE | 2025-10-20 15:50 | PCM.DC.SUM ---
Providers Date of Admission: 10/19/25 Primary Care Physician: Last Coleman, SM[employer] ENERGY SPECIALIST-C Consultations 10/19/25 21:08 Consult: Tele-Neurology Routine Consulting Provider: [facility] Reason for Consult: Acute Ischemic Stroke/TIA EMERGENT Consult: No MD Notified: Yes Date Notified: 10/19/25 Time Notified: 21:48 Method of Notification: Answering Service Nursing Unit Staff Notify [facility] of Tele-Neurology Consult: Yes Reason For Visit: CVA Diagnosis Discharge Diagnosis (1) CVA (cerebral vascular accident): Status: Acute Code(s): I63.9 - Cerebral infarction, unspecified Plan Left monocular superior quadrantanopia concerning for acute CVA MRI of the brain T2 flair most pronounced in the periventricular white matter of the left frontal lobe. Nonspecific findings. Neurology saw felt likely mechanism is cardioembolic from A-fib. Continue with apixaban, aspirin and statin. Follow-up with neurology and ophthalmology as outpatient. maintain on asa, continue Eliquis. Follow-up with neurology as outpatient Echo shows a PFO but otherwise unremarkable. Patient continue with apixaban as outpatient. Elevated troponins: 23 x 3. Echo ordered. If no significant abnormality, no additional work up. Echo completed. Report pending. Incidentally noted pulmonary nodules and perihilar lymphadenopathy: Patient with noted findings on CTA head and neck with follow-up chest CTA with noted bilateral pulmonary nodules and lymphadenopathy suspicious for malignancy, will need follow-up and further evaluation outpatient Chronic conditions: Normocytic anemia, unclear chronicity, given history suspect chronic: Admission hemoglobin 9.1, MCV 94, no comparison labs, will plan repeat CBC in a.m. and if stable likely suspect this is chronic however if this is worsened would obtain iron panel, ferritin, guaiac and further evaluate. 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 DVT prophylaxis: Continue patient on Eliquis regimen; Medications at Discharge Home Medications apixaban 5 mg tablet (Eliquis) 5 mg PO BID 10/19/25 levothyroxine 200 mcg tablet 200 mcg PO DAILY 10/19/25 aspirin 81 mg chewable tablet 81 mg PO BREAKFAST #0 tabs 10/20/25 atorvastatin 80 mg tablet 80 mg PO QHS #30 tabs 10/20/25 Hospital Course Operations None Procedures 2-D Echocardiogram Weight / BMI Weight Weight: 75.1 kg Body Mass Index (BMI) 22.4 ABG / Lab / Microbiology Data 10/20/25 04:04 10/20/25 04:04 Laboratory: Laboratory Results - last 24 hr 10/19/25 17:55: WBC 15.0 H, RBC 3.00 L, Hgb 9.1 L, Hct 28.2 L, MCV 94.0, MCH 30.3, MCHC 32.3, RDW Std Deviation 41.1, RDW Coeff of Eugenia 11.9, Plt Count 440, MPV 9.1, Immature Gran % (Auto) 0.500, Neut % (Auto) 87.6 H, Lymph % (Auto) 4.7 L, [place] % (Auto) 5.7, Eos % (Auto) 1.3, Baso % (Auto) 0.2, Absolute Neuts (auto) 13.2 H, Absolute Lymphs (auto) 0.71 L, Nucleated RBC % 0, PT 16.0 H, INR 1.3, APTT 40.3 H, Sodium 138, Potassium 4.5, Chloride 98, Carbon Dioxide 27.4, Anion Gap 12, BUN 12, Creatinine 0.82, Estim Creat Clear Calc 114.99, Est GFR (MDRD) Non-Af 109, BUN/Creatinine Ratio 14.5, Glucose 121 H, Calcium 10.8, Troponin T High Sens 23 H 10/19/25 18:00: POC Glucose 105 10/19/25 19:38: Phosphorus 3.3, Magnesium 2.2, Troponin T Hi Sens 2 Hr 23 H 10/19/25 22:35: Troponin T Hi Sens 4Hr 23 H 10/20/25 04:04: WBC 10.9, RBC 2.67 L, Hgb 8.4 L, Hct 25.2 L, MCV 94.4 H, MCH 31.5, MCHC 33.3, RDW Std Deviation 41.5, RDW Coeff of Eugenia 12.0, Plt Count 371, MPV 8.8, Immature Gran % (Auto) 0.300, Neut % (Auto) 87.7 H, Lymph % (Auto) 4.8 L, [place] % (Auto) 5.3, Eos % (Auto) 1.6, Baso % (Auto) 0.3, Absolute Neuts (auto) 9.6 H, Absolute Lymphs (auto) 0.52 L, Nucleated RBC % 0, Sodium 136, Potassium 3.8, Chloride 99, Carbon Dioxide 26.6, Anion Gap 10, BUN 9, Creatinine 0.77, Estim Creat Clear Calc 127.66, Est GFR (MDRD) Non-Af 111, BUN/Creatinine Ratio 11.1, Glucose 89, Hemoglobin A1c 5.0, Calcium 10.5, Total Bilirubin 0.39, AST 12, ALT 6, Alkaline Phosphatase 60, Total Protein 7.5, Albumin 3.7, Globulin 3.8, Albumin/Globulin Ratio 1.0, Triglycerides 57, Cholesterol 160, LDL Cholesterol, Calc 109, VLDL Cholesterol 11, HDL Cholesterol 40, Cholesterol/HDL Ratio 4.01, TSH 1.170 Radiography Diagnostic Testing: Radiology Impression Brain CT 10/19/25 17:39 IMPRESSION: No acute intracranial abnormality. Critical results were communicated to Dr. Armenta at 4:50 p.m.. Reading Location: [facility] Head/Neck CTA 10/19/25 17:40 IMPRESSION: No acute arterial abnormality of the head or neck. Suspicious pulmonary nodules and perihilar lymphadenopathy. Further characterization with nonemergent chest CT is recommended. Reading Location: [facility] Chest CTA 10/19/25 17:52 IMPRESSION: Bilateral pulmonary nodules and lymphadenopathy suspicious for malignancy. No pulmonary embolism. Reading Location: [facility] Chest X-Ray 10/19/25 18:40 IMPRESSION: No Acute Findings. Reading [facility] Echocardiogram 10/19/25 21:08 Interpretation Summary The estimated ejection fraction is 65 %. Unable to assess diastolic dysfunction. Bubble contrast study is positive for PFO. Status post mitral valve repair. Ordering Physician: Belkys Castillo Referring Physician: Last Coleman Performed By: Kwadwo Noriega RDCS Brain MRI 10/20/25 07:00 IMPRESSION: No acute intracranial abnormality. T2 signal hyperintensities on FLAIR most pronounced within the periventricular white matter of the left frontal lobe. The findings are nonspecific. Differential considerations would include dysmyelinating and demyelinating disorders inclusive of multiple sclerosis. No areas of restricted diffusion to suggest acute hemorrhage. Subtle area of susceptibility within the left sylvian fissure likely related to old microhemorrhage. Reading Location: [facility] D/C Instructions DC O2, CPAP, BIPAP Needs Home O2 Discharge instructions: No Meaningful Use Info Meaningful Use Meaningful Use Diagnoses (Choose all that apply): None applicable CVA Therapy Assessed for PT,OT and/or ST?: Yes Ischemic Stroke Antithrombotic order at d/c?: No Reason antithrombotic not ordered: Treatment not Indicated Dx of Atrial fib/flutter?: Yes Anticoagulant at discharge?: Yes Statins at discharge?: Yes Reason Statin not ordered: Treatment not Indicated If patient is 75 or younger, pt will be discharged on HIGH intensity statin.: Yes Primary Dx Acute Ischemic CVA?: Yes IV thrombolytic ordered during stay?: No Reason IV thrombolytic not ordered: Treatment not Indicated Discharge Plan Admission Admit Date/Time: 10/19/25 19:30 Primary Reason for Your Visit: stroke Attending Provider: Nathanael Jean Baptiste Primary Care Provider: Last Coleman NP Consulting Providers: Bam Mack; Lisa Wilkerson; Latonia Hancock; Stacy Woods; Keli Ho; Aaron Webb; Suzette Abarca; Jeremie Santoyo; Jay Mc; Siddharth Anders; Neda Elliott; Connie Pérez; Levi Valdez; Nathalie Vences; Tra Owens; Barbie James; Adrián Carlos; Dony Salazar; Crescencio Casarez; hSaila Miller; Sherry Luo; Belkys Castillo Discharge Orders/Prescriptions Prescriptions: New aspirin 81 mg Tablet,Chewable 81 mg PO BREAKFAST Qty: 0 0RF atorvastatin 80 mg Tablet 80 mg PO QHS Qty: 30 0RF Continued levothyroxine 200 mcg tablet 200 mcg PO DAILY Eliquis 5 mg tablet 5 mg PO BID Referrals / Follow Up: [facility] [Provider Group] - Within 1 Month [facility] [Provider Group] - Within 2 Weeks Last Coelman SMART ENERGY SPECIALIST, SM[employer] ENERGY SPECIALIST-C [Primary Care Provider, Family Practice] - Within 2 Weeks Disposition Disposition (needs filled in before D/C Order can be placed): Home, Self Care Charges/Coding Visit Charges Inpatient E&M: 78597 Disch Hosp
[2025-10-20 16:37] VITALS: BP 103/78; PULSE 99; RESP 12; TEMP 36.6; O2SAT 100
== END 2025-10-20 17:27 | disposition home or self-care (01) ==
LOC: ED 20:00 → PCU 20:45
PROVIDERS: Admitting Provider Family Medicine; Emergency Provider Emergency Medicine; PCP Nurse Practitioner Family
DX: H53.462 Homonymous bilateral field defects, left side (principal); I48.0 Paroxysmal atrial fibrillation; C76.0 Malignant neoplasm of head, face and neck; Z79.01 Long term (current) use of anticoagulants; D64.9 Anemia, unspecified; Z79.890 Hormone replacement therapy; H34.232 Retinal artery branch occlusion, left eye; Z87.891 Personal history of nicotine dependence; D72.810 Lymphocytopenia; R59.9 Enlarged lymph nodes, unspecified; E43 Unspecified severe protein-calorie malnutrition; E03.9 Hypothyroidism, unspecified; R91.8 Other nonspecific abnormal finding of lung field; Z68.21 Body mass index [BMI] 21.0-21.9, adult
CPT/HCPCS: 70450; 70496; 70498; 70551; 71045; 71275; 80048; 80053; 80061; 82962; 83036; 83735; 84100; 84443; 84484; 85025; 85610; 85730; 92610; 93005; 93306; 94668; 94762; 96360; 96361; 97161; 97802; 99221; 99285; Q9967; A4216; G0378